=== PATIENT | male | born 1970 | race Native Hawaiian/Other Pacific Islander ===

== ENCOUNTER 2018-04-12 09:46 | Inpatient (IN) | payer BC ==
[~2018-04-12] VITALS: Ht 190.5 cm; Wt 118.0 kg
[2018-04-12 09:54] VITALS: BP 135/80; TEMP 98
[2018-04-12 10:41] LABS: PLATELET COUNT 259 K/uL (142-355)
[2018-04-12 11:02] LABS: POTASSIUM 4.8 mmol/L (3.6-5.2); SODIUM 136 mmol/L (136-145)
[2018-04-12 12:00] VITALS: BP 136/84
[2018-04-12 14:48] VITALS: BP 146/90
[2018-04-12] MEDS ORDERED: PYRI60TA2 PO (15:25)
[2018-04-12] MEDS ORDERED: GLIM4TAB PO (15:26)
[2018-04-12] MEDS ORDERED: AMLODIPINE BESYLATE PO (15:27)
[2018-04-12] MEDS ORDERED: LABETALOL100 MG PO (15:29)
[2018-04-12] MEDS ORDERED: ROSU10TA PO (15:30)
[2018-04-12] MEDS ORDERED: LANTUS100 UNIT/M SC (15:31)
[2018-04-12] MEDS ORDERED: METFORMIN HYD1000 MG PO (15:31)
[2018-04-12 16:14] LABS: PLATELET COUNT 259 K/uL (142-355)
[2018-04-12 16:28] LABS: POTASSIUM 3.9 mmol/L (3.6-5.2)
[2018-04-12 16:58] VITALS: BP 170/95; TEMP 98.2; Ht 190.5 cm; Wt 118.0 kg
[2018-04-12 20:13] VITALS: BP 143/80; TEMP 98.1
[2018-04-13] VITALS: BP 143/88; TEMP 98.7
[2018-04-13 03:35] VITALS: BP 130/79; TEMP 98.7
[2018-04-13 04:52] LABS: PLATELET COUNT 241 K/uL (142-355)
[2018-04-13 05:06] LABS: POTASSIUM 3.7 mmol/L (3.6-5.2)
--- NOTE | 2018-04-13 06:59 | NUR ---
04/13/18 0655 DISCHARGE INSTRUCTIONS GIVEN AND SIGNED.SALINE LOCK REMOVED TO RT ARM APPLIED 2X2 AND SECURED WITH TAPE PT TOLERATED WELL.PT TOOK OUT WHEELCAHIR TO PRIVATE CAR.CC
== END 2018-04-13 07:00 | disposition home or self-care (01) | DRG 440 ==
LOC: ED 09:46 → MED/SURG 14:18
PROVIDERS: ADMIT Family Medicine
DX: K85.90 Acute pancreatitis without necrosis or infection, unspecified (principal); D72.828 Other elevated white blood cell count; R11.2 Nausea with vomiting, unspecified; R10.13 Epigastric pain; I10 Essential (primary) hypertension; E11.9 Type 2 diabetes mellitus without complications; K21.9 Gastro-esophageal reflux disease without esophagitis
CPT/HCPCS: 36415; 74022; 80053; 82150; 82550; 82553; 82948; 83605; 83690; 84484; 85027; 93005; 96361; 96365; 96366; 96375; 99284; J0744; J1650; J2405; J3490; Q9963

== ENCOUNTER 2018-08-04 07:43 | Outpatient (CLI) | payer BC ==
[~2018-08-04 07:43] MED LIST: AMLODIPINE BESYLATE PO; GLIM4TAB PO; LABETALOL100 MG PO; LANTUS100 UNIT/M SC; METFORMIN HYD1000 MG PO; PYRI60TA2 PO; ROSU10TA PO
== END 2018-08-04 22:44 | disposition home or self-care (01) ==
LOC: NM 07:43
DX: E13.621 Other specified diabetes mellitus with foot ulcer (principal); L97.528 Non-pressure chronic ulcer of other part of left foot with other specified severity
CPT/HCPCS: A9561

== ENCOUNTER 2019-12-03 12:34 | Outpatient (CLI) | payer BC ==
[~2019-12-03 12:34] MED LIST changes: +BASAGLAR K100 UNIT/M SC; +NEURONTIN 100M100 MG PO; +NEXIUM 24HR20 MG PO; +TRULICITY0.75 MG/0. SC
== END 2019-12-03 23:02 | disposition home or self-care (01) ==
LOC: RAD 12:34
DX: R05 Cough (principal)

== ENCOUNTER 2019-12-06 17:03 | Inpatient (IN) | payer BC ==
[~2019-12-06] VITALS: Ht 193 cm; Wt 121.6 kg
[2019-12-06 19:03] VITALS: BP 137/81; TEMP 99.4; Ht 193 cm; Wt 121.6 kg
[2019-12-06 19:28] LABS: PLATELET COUNT 200 K/uL (142-355)
[2019-12-06 20:00] VITALS: BP 185/88; TEMP 100.1
[2019-12-07 00:14] VITALS: BP 155/67; TEMP 101.1
[2019-12-07 04:00] VITALS: BP 171/91; TEMP 101
[2019-12-07 08:00] VITALS: BP 155/84; TEMP 99.1
[2019-12-07 08:47] LABS: PLATELET COUNT 200 K/uL (142-355)
[2019-12-07 09:31] LABS: POTASSIUM 3.8 mmol/L (3.6-5.2)
[2019-12-07 12:00] VITALS: BP 170/91; TEMP 99.2
[2019-12-07 16:00] VITALS: BP 182/93; TEMP 98.7
[2019-12-07 20:00] VITALS: BP 188/99; TEMP 99.9
[2019-12-07] MEDS ORDERED: CLOPIDOGREL75 MG PO (20:10)
[2019-12-07] MEDS ORDERED: LOSA50TA PO (20:12)
[2019-12-08] VITALS (7 sets, daily range): BP systolic 143–182; BP diastolic 78–91; TEMP 98.1–99.8
[2019-12-08 04:50] LABS: PLATELET COUNT 184 K/uL (142-355)
[2019-12-09 03:42] VITALS: BP 165/93; TEMP 98.3
[2019-12-09 04:30] LABS: PLATELET COUNT 195 K/uL (142-355)
[2019-12-09 04:59] LABS: POTASSIUM 4.4 mmol/L (3.6-5.2)
[2019-12-09 08:00] VITALS: BP 180/87; TEMP 98.1
[2019-12-09 12:00] VITALS: BP 138/72; TEMP 98.1
[2019-12-09 16:00] VITALS: BP 168/84; TEMP 98.1
[2019-12-09 20:24] VITALS: BP 164/93; TEMP 98.3
[2019-12-09 23:49] VITALS: BP 187/90; TEMP 98.4
[2019-12-10 03:40] VITALS: BP 174/91; TEMP 97.7
[2019-12-10 05:26] LABS: PLATELET COUNT 219 K/uL (142-355)
[2019-12-10 05:53] LABS: POTASSIUM 4.2 mmol/L (3.6-5.2)
[2019-12-10 08:00] VITALS: BP 177/89; TEMP 97.6
[2019-12-10 12:00] VITALS: BP 185/90; TEMP 98.3
[2019-12-10 16:00] VITALS: BP 194/97; TEMP 97.8
[2019-12-10 20:00] VITALS: BP 190/99; TEMP 98.1
[2019-12-11] VITALS: BP 174/93; BP 174/97; TEMP 98.1; TEMP 99.4
[2019-12-11 04:00] VITALS: BP 151/69; TEMP 97.7
[2019-12-11 05:55] LABS: PLATELET COUNT 228 K/uL (142-355)
[2019-12-11 07:10] LABS: POTASSIUM 3.8 mmol/L (3.6-5.2)
[2019-12-11 08:00] VITALS: BP 183/90; TEMP 97.6
[2019-12-11 12:00] VITALS: BP 158/79; TEMP 97.7
[2019-12-11 16:00] VITALS: BP 156/79; TEMP 98.1
[2019-12-11 20:13] VITALS: BP 169/90; TEMP 98.2
[2019-12-12 00:14] VITALS: BP 159/77; TEMP 98.5
[2019-12-12 04:00] VITALS: BP 131/62; TEMP 98.8
[2019-12-12 08:00] VITALS: BP 186/101; TEMP 97.7
[2019-12-12 12:00] VITALS: BP 174/87; TEMP 98.1
[2019-12-12 16:00] VITALS: BP 185/97; TEMP 98.4
== END 2019-12-12 16:33 | disposition home or self-care (01) | DRG 177 ==
LOC: MED/SURG 17:03
PROVIDERS: ADMIT Family Medicine
DX: U07.1 COVID-19 (principal); J18.8 Other pneumonia, unspecified organism; E46 Unspecified protein-calorie malnutrition; I10 Essential (primary) hypertension; E86.0 Dehydration; R74.8 Abnormal levels of other serum enzymes; R09.02 Hypoxemia; E11.42 Type 2 diabetes mellitus with diabetic polyneuropathy; J44.9 Chronic obstructive pulmonary disease, unspecified; R06.00 Dyspnea, unspecified; D64.89 Other specified anemias
CPT/HCPCS: 36415; 80053; 82728; 83735; 84100; 85027; 86140; 87040; 93005; 94667; 94668; 94760; J0456; J0696; J1100; J1650; J1815; J2405; Q9963

== ENCOUNTER 2019-12-16 11:04 | Outpatient (CLI) | payer BC ==
[~2019-12-16 11:04] MED LIST changes: +CLOPIDOGREL75 MG PO; +LOSA50TA PO
== END 2019-12-16 22:01 | disposition home or self-care (01) ==
LOC: RAD 11:04
DX: J18.9 Pneumonia, unspecified organism (principal)

== ENCOUNTER 2020-06-14 12:44 | Outpatient (CLI) | payer BC ==
[~2020-06-14] VITALS: Ht 193 cm; Wt 124.3 kg
== END 2020-06-14 19:40 | disposition home or self-care (01) ==
LOC: DIABINF 12:44
PROVIDERS: ATTEND Internal Medicine Endocrinology, Diabetes & Metabolism
DX: E11.3313 Type 2 diabetes mellitus with moderate nonproliferative diabetic retinopathy with macular edema, bilateral (principal); E11.42 Type 2 diabetes mellitus with diabetic polyneuropathy; Z79.4 Long term (current) use of insulin; K21.9 Gastro-esophageal reflux disease without esophagitis; I10 Essential (primary) hypertension; E78.2 Mixed hyperlipidemia; Z68.33 Body mass index [BMI] 33.0-33.9, adult; N52.8 Other male erectile dysfunction; S81.811D Laceration without foreign body, right lower leg, subsequent encounter; R53.82 Chronic fatigue, unspecified
CPT/HCPCS: 82948; 96365; 96366; 96521; 99205; J1718; J1815

== ENCOUNTER 2020-06-15 12:08 | Outpatient (CLI) | payer BC ==
[~2020-06-15] VITALS: Ht 175.3 cm; Wt 124.3 kg
== END 2020-06-15 20:09 | disposition home or self-care (01) ==
LOC: DIABINF 12:08
PROVIDERS: ATTEND Internal Medicine Endocrinology, Diabetes & Metabolism
DX: E11.3313 Type 2 diabetes mellitus with moderate nonproliferative diabetic retinopathy with macular edema, bilateral (principal); E11.42 Type 2 diabetes mellitus with diabetic polyneuropathy; Z79.4 Long term (current) use of insulin; K21.9 Gastro-esophageal reflux disease without esophagitis; I10 Essential (primary) hypertension; E78.2 Mixed hyperlipidemia; Z68.33 Body mass index [BMI] 33.0-33.9, adult; N52.8 Other male erectile dysfunction; S81.811D Laceration without foreign body, right lower leg, subsequent encounter; R53.82 Chronic fatigue, unspecified
CPT/HCPCS: 82948; 96365; 96366; 96521; 99214; J1718; J1815

== ENCOUNTER 2020-06-21 12:36 | Outpatient (CLI) | payer BC ==
[~2020-06-21] VITALS: Ht 175.3 cm; Wt 124.3 kg
== END 2020-06-21 21:12 | disposition home or self-care (01) ==
LOC: DIABINF 12:36
PROVIDERS: ATTEND Internal Medicine Endocrinology, Diabetes & Metabolism
DX: E11.3313 Type 2 diabetes mellitus with moderate nonproliferative diabetic retinopathy with macular edema, bilateral (principal); E11.42 Type 2 diabetes mellitus with diabetic polyneuropathy; K21.9 Gastro-esophageal reflux disease without esophagitis; Z79.4 Long term (current) use of insulin; I10 Essential (primary) hypertension; E78.2 Mixed hyperlipidemia; Z68.33 Body mass index [BMI] 33.0-33.9, adult; N52.8 Other male erectile dysfunction; S81.811D Laceration without foreign body, right lower leg, subsequent encounter; R53.82 Chronic fatigue, unspecified
CPT/HCPCS: 82948; 96365; 96366; 96521; 99214; J1718; J1815

== ENCOUNTER 2020-06-21 14:25 | Outpatient (CLI) | payer BC, OTHER | END 2020-06-21 21:14 | disposition home or self-care (01) | LOC: INF 14:25 | PROVIDERS: ATTEND Internal Medicine | DX: Z23 Encounter for immunization (principal) | CPT/HCPCS: 96372 ==

== ENCOUNTER 2020-06-22 08:09 | Outpatient (CLI) | payer BC ==
[~2020-06-22] VITALS: Ht 175.3 cm; Wt 124.3 kg
== END 2020-06-22 21:25 | disposition home or self-care (01) ==
LOC: DIABINF 08:09
PROVIDERS: ATTEND Internal Medicine Endocrinology, Diabetes & Metabolism
DX: E11.3313 Type 2 diabetes mellitus with moderate nonproliferative diabetic retinopathy with macular edema, bilateral (principal); E11.42 Type 2 diabetes mellitus with diabetic polyneuropathy; K21.9 Gastro-esophageal reflux disease without esophagitis; Z79.4 Long term (current) use of insulin; I10 Essential (primary) hypertension; E78.2 Mixed hyperlipidemia; Z68.33 Body mass index [BMI] 33.0-33.9, adult; N52.8 Other male erectile dysfunction; S81.811D Laceration without foreign body, right lower leg, subsequent encounter; R53.82 Chronic fatigue, unspecified
CPT/HCPCS: 82948; 96365; 96366; 96521; 99214; J1718; J1815

== ENCOUNTER 2020-06-29 12:53 | Outpatient (CLI) | payer BC ==
[~2020-06-29] VITALS: Ht 175.3 cm; Wt 124.3 kg
== END 2020-06-29 21:46 | disposition home or self-care (01) ==
LOC: DIABINF 12:53
PROVIDERS: ATTEND Internal Medicine Endocrinology, Diabetes & Metabolism
DX: E11.3313 Type 2 diabetes mellitus with moderate nonproliferative diabetic retinopathy with macular edema, bilateral (principal); E11.42 Type 2 diabetes mellitus with diabetic polyneuropathy; K21.9 Gastro-esophageal reflux disease without esophagitis; Z79.4 Long term (current) use of insulin; I10 Essential (primary) hypertension; E78.2 Mixed hyperlipidemia; Z68.33 Body mass index [BMI] 33.0-33.9, adult; N52.8 Other male erectile dysfunction; S81.811D Laceration without foreign body, right lower leg, subsequent encounter; R53.82 Chronic fatigue, unspecified
CPT/HCPCS: 82948; 96365; 96366; 96521; 99214; J1718; J1815

== ENCOUNTER 2020-06-30 12:28 | Outpatient (CLI) | payer BC ==
[~2020-06-30] VITALS: Ht 175.3 cm; Wt 124.3 kg
== END 2020-06-30 21:39 | disposition home or self-care (01) ==
LOC: DIABINF 12:28
PROVIDERS: ATTEND Internal Medicine Endocrinology, Diabetes & Metabolism
DX: E11.3313 Type 2 diabetes mellitus with moderate nonproliferative diabetic retinopathy with macular edema, bilateral (principal); K21.9 Gastro-esophageal reflux disease without esophagitis; Z79.4 Long term (current) use of insulin; I10 Essential (primary) hypertension; E78.2 Mixed hyperlipidemia; Z68.33 Body mass index [BMI] 33.0-33.9, adult; N52.8 Other male erectile dysfunction; S81.811D Laceration without foreign body, right lower leg, subsequent encounter; R53.82 Chronic fatigue, unspecified
CPT/HCPCS: 82948; 96365; 96366; 96521; 99214; J1718; J1815

== ENCOUNTER 2020-07-06 12:39 | Outpatient (CLI) | payer BC ==
[~2020-07-06] VITALS: Ht 175.3 cm; Wt 124.3 kg
== END 2020-07-06 22:13 | disposition home or self-care (01) ==
LOC: DIABINF 12:39
PROVIDERS: ATTEND Internal Medicine Endocrinology, Diabetes & Metabolism
DX: E11.3313 Type 2 diabetes mellitus with moderate nonproliferative diabetic retinopathy with macular edema, bilateral (principal); E11.42 Type 2 diabetes mellitus with diabetic polyneuropathy; E11.65 Type 2 diabetes mellitus with hyperglycemia; K21.9 Gastro-esophageal reflux disease without esophagitis; I10 Essential (primary) hypertension; E78.2 Mixed hyperlipidemia; Z68.33 Body mass index [BMI] 33.0-33.9, adult; N52.8 Other male erectile dysfunction
CPT/HCPCS: 82948; 96365; 96366; 96521; 99214; J1718; J1815

== ENCOUNTER 2020-07-13 10:45 | Outpatient (CLI) | payer BC ==
[~2020-07-13] VITALS: Ht 175.3 cm; Wt 124.3 kg
== END 2020-07-13 19:34 | disposition home or self-care (01) ==
LOC: DIABINF 10:45
PROVIDERS: ATTEND Internal Medicine Endocrinology, Diabetes & Metabolism
DX: E11.3399 Type 2 diabetes mellitus with moderate nonproliferative diabetic retinopathy without macular edema, unspecified eye (principal); E11.42 Type 2 diabetes mellitus with diabetic polyneuropathy; Z79.4 Long term (current) use of insulin; K21.9 Gastro-esophageal reflux disease without esophagitis; I10 Essential (primary) hypertension; E78.2 Mixed hyperlipidemia; Z68.33 Body mass index [BMI] 33.0-33.9, adult; N52.8 Other male erectile dysfunction; S80.811A Abrasion, right lower leg, initial encounter; R53.82 Chronic fatigue, unspecified
CPT/HCPCS: 82948; 96365; 96366; 96521; 99214; J1718; J1815

== ENCOUNTER 2020-07-18 15:23 | Outpatient (CLI) | payer BC, OTHER | END 2020-07-18 21:36 | disposition home or self-care (01) | LOC: INF 15:23 | PROVIDERS: ATTEND Internal Medicine | DX: Z23 Encounter for immunization (principal) | CPT/HCPCS: 96372 ==

== ENCOUNTER 2020-07-21 12:10 | Outpatient (CLI) | payer BC ==
[~2020-07-21] VITALS: Ht 175.3 cm; Wt 124.3 kg
== END 2020-07-21 19:25 | disposition home or self-care (01) ==
LOC: DIABINF 12:10
PROVIDERS: ATTEND Internal Medicine Endocrinology, Diabetes & Metabolism
DX: E11.3399 Type 2 diabetes mellitus with moderate nonproliferative diabetic retinopathy without macular edema, unspecified eye (principal); E11.42 Type 2 diabetes mellitus with diabetic polyneuropathy; Z79.4 Long term (current) use of insulin; K21.9 Gastro-esophageal reflux disease without esophagitis; I10 Essential (primary) hypertension; E78.2 Mixed hyperlipidemia; Z68.33 Body mass index [BMI] 33.0-33.9, adult; N52.8 Other male erectile dysfunction; S81.801D Unspecified open wound, right lower leg, subsequent encounter; R53.82 Chronic fatigue, unspecified
CPT/HCPCS: 82948; 96365; 96366; 96521; 99214; J1718; J1815

== ENCOUNTER 2020-07-28 07:53 | Outpatient (CLI) | payer BC ==
[~2020-07-28] VITALS: Ht 170.2 cm; Wt 124.3 kg
== END 2020-07-28 19:47 | disposition home or self-care (01) ==
LOC: DIABINF 07:53
PROVIDERS: ATTEND Internal Medicine Endocrinology, Diabetes & Metabolism
DX: E11.3393 Type 2 diabetes mellitus with moderate nonproliferative diabetic retinopathy without macular edema, bilateral (principal); E11.42 Type 2 diabetes mellitus with diabetic polyneuropathy; Z79.4 Long term (current) use of insulin; K21.9 Gastro-esophageal reflux disease without esophagitis; I10 Essential (primary) hypertension; E78.2 Mixed hyperlipidemia; Z68.33 Body mass index [BMI] 33.0-33.9, adult; N52.8 Other male erectile dysfunction; S81.801A Unspecified open wound, right lower leg, initial encounter; R53.82 Chronic fatigue, unspecified
CPT/HCPCS: 82948; 96365; 96366; 96521; 99214; J1718; J1815

== ENCOUNTER 2020-08-03 12:54 | Outpatient (CLI) | payer BC ==
[~2020-08-03] VITALS: Ht 175.3 cm; Wt 124.3 kg
== END 2020-08-03 21:58 | disposition home or self-care (01) ==
LOC: DIABINF 12:54
PROVIDERS: ATTEND Internal Medicine Endocrinology, Diabetes & Metabolism
DX: E11.3399 Type 2 diabetes mellitus with moderate nonproliferative diabetic retinopathy without macular edema, unspecified eye (principal); E11.42 Type 2 diabetes mellitus with diabetic polyneuropathy; Z79.4 Long term (current) use of insulin; K21.9 Gastro-esophageal reflux disease without esophagitis; I10 Essential (primary) hypertension; E78.2 Mixed hyperlipidemia; Z68.33 Body mass index [BMI] 33.0-33.9, adult; N52.8 Other male erectile dysfunction; S81.801A Unspecified open wound, right lower leg, initial encounter; R53.82 Chronic fatigue, unspecified
CPT/HCPCS: 82948; 96365; 96366; 96521; 99214; J1718; J1815

== ENCOUNTER 2020-08-09 08:21 | Outpatient (CLI) | payer BC ==
[~2020-08-09] VITALS: Ht 175.3 cm; Wt 124.3 kg
== END 2020-08-09 21:14 | disposition home or self-care (01) ==
LOC: DIABINF 08:21
PROVIDERS: ATTEND Internal Medicine Endocrinology, Diabetes & Metabolism
DX: E11.3393 Type 2 diabetes mellitus with moderate nonproliferative diabetic retinopathy without macular edema, bilateral (principal); E11.42 Type 2 diabetes mellitus with diabetic polyneuropathy; Z79.4 Long term (current) use of insulin; K21.9 Gastro-esophageal reflux disease without esophagitis; I10 Essential (primary) hypertension; E78.2 Mixed hyperlipidemia; Z68.33 Body mass index [BMI] 33.0-33.9, adult; N52.8 Other male erectile dysfunction; S81.801A Unspecified open wound, right lower leg, initial encounter; R53.82 Chronic fatigue, unspecified
CPT/HCPCS: 82948; 96365; 96366; 96521; 99214; J1718

== ENCOUNTER 2020-08-17 13:12 | Outpatient (CLI) | payer BC ==
[~2020-08-17] VITALS: Ht 177.8 cm; Wt 90.3 kg
== END 2020-08-17 20:37 | disposition home or self-care (01) ==
LOC: DIABINF 13:12
PROVIDERS: ATTEND Nurse Practitioner
DX: E11.3399 Type 2 diabetes mellitus with moderate nonproliferative diabetic retinopathy without macular edema, unspecified eye (principal); E11.42 Type 2 diabetes mellitus with diabetic polyneuropathy; Z79.4 Long term (current) use of insulin; K21.9 Gastro-esophageal reflux disease without esophagitis; I10 Essential (primary) hypertension; E78.2 Mixed hyperlipidemia; Z68.33 Body mass index [BMI] 33.0-33.9, adult; N52.8 Other male erectile dysfunction; S81.801A Unspecified open wound, right lower leg, initial encounter; R53.82 Chronic fatigue, unspecified
CPT/HCPCS: 82948; 96365; 96366; 96521; 99214; J1718; J1815

== ENCOUNTER 2020-08-24 12:46 | Outpatient (CLI) | payer BC ==
[~2020-08-24] VITALS: Ht 175.3 cm; Wt 124.3 kg
== END 2020-08-24 20:30 | disposition home or self-care (01) ==
LOC: DIABINF 12:46
PROVIDERS: ATTEND Nurse Practitioner
DX: E11.3399 Type 2 diabetes mellitus with moderate nonproliferative diabetic retinopathy without macular edema, unspecified eye (principal); E11.42 Type 2 diabetes mellitus with diabetic polyneuropathy; Z79.4 Long term (current) use of insulin; K21.9 Gastro-esophageal reflux disease without esophagitis; I10 Essential (primary) hypertension; E78.2 Mixed hyperlipidemia; Z68.33 Body mass index [BMI] 33.0-33.9, adult; N52.8 Other male erectile dysfunction; S81.801A Unspecified open wound, right lower leg, initial encounter; R53.82 Chronic fatigue, unspecified
CPT/HCPCS: 82948; 96365; 96366; 96521; J1815; J1817

== ENCOUNTER 2020-08-31 12:44 | Outpatient (CLI) | payer BC ==
[~2020-08-31] VITALS: Ht 175.3 cm; Wt 124.3 kg
== END 2020-08-31 23:19 | disposition home or self-care (01) ==
LOC: DIABINF 12:44
PROVIDERS: ATTEND Internal Medicine Endocrinology, Diabetes & Metabolism
DX: E11.3393 Type 2 diabetes mellitus with moderate nonproliferative diabetic retinopathy without macular edema, bilateral (principal); E11.42 Type 2 diabetes mellitus with diabetic polyneuropathy; Z79.4 Long term (current) use of insulin; K21.9 Gastro-esophageal reflux disease without esophagitis; I10 Essential (primary) hypertension; E78.2 Mixed hyperlipidemia; Z68.33 Body mass index [BMI] 33.0-33.9, adult; N52.8 Other male erectile dysfunction; S81.801D Unspecified open wound, right lower leg, subsequent encounter; R53.82 Chronic fatigue, unspecified
CPT/HCPCS: 82948; 96365; 96366; 96521; J1815; J1817

== ENCOUNTER 2020-09-01 08:35 | Outpatient (CLI) | payer BC ==
[2020-09-01 09:08] LABS: PLATELET COUNT 302 K/uL (142-355)
== END 2020-09-01 22:39 | disposition home or self-care (01) ==
LOC: LABW 08:35
PROVIDERS: ATTEND Nurse Practitioner
DX: E11.65 Type 2 diabetes mellitus with hyperglycemia (principal); E78.2 Mixed hyperlipidemia; I10 Essential (primary) hypertension
CPT/HCPCS: 36415; 80053; 80061; 83036; 85027

== ENCOUNTER 2020-09-07 12:41 | Outpatient (CLI) | payer BC | END 2020-09-07 22:28 | disposition home or self-care (01) | LOC: DIABINF 12:41 | PROVIDERS: ATTEND Internal Medicine Endocrinology, Diabetes & Metabolism | DX: E11.3393 Type 2 diabetes mellitus with moderate nonproliferative diabetic retinopathy without macular edema, bilateral (principal); E11.42 Type 2 diabetes mellitus with diabetic polyneuropathy; Z79.4 Long term (current) use of insulin; K21.9 Gastro-esophageal reflux disease without esophagitis; I10 Essential (primary) hypertension; E78.2 Mixed hyperlipidemia; Z68.33 Body mass index [BMI] 33.0-33.9, adult; N52.8 Other male erectile dysfunction; S81.801D Unspecified open wound, right lower leg, subsequent encounter; R53.82 Chronic fatigue, unspecified | CPT/HCPCS: 82948; 96365; 96366; 96521; J1817 ==

== ENCOUNTER 2020-09-14 13:06 | Outpatient (CLI) | payer BC ==
[~2020-09-14] VITALS: Ht 175.3 cm; Wt 117.9 kg
== END 2020-09-14 22:00 | disposition home or self-care (01) ==
LOC: DIABINF 13:06
PROVIDERS: ATTEND Internal Medicine Endocrinology, Diabetes & Metabolism
DX: E11.3399 Type 2 diabetes mellitus with moderate nonproliferative diabetic retinopathy without macular edema, unspecified eye (principal); E11.42 Type 2 diabetes mellitus with diabetic polyneuropathy; Z79.4 Long term (current) use of insulin; K21.9 Gastro-esophageal reflux disease without esophagitis; I10 Essential (primary) hypertension; E78.2 Mixed hyperlipidemia; Z68.33 Body mass index [BMI] 33.0-33.9, adult; N52.8 Other male erectile dysfunction; S81.801D Unspecified open wound, right lower leg, subsequent encounter; R53.82 Chronic fatigue, unspecified
CPT/HCPCS: 82948; 96365; 96366; 96521; J1815; J1817

== ENCOUNTER 2020-09-21 12:33 | Outpatient (CLI) | payer BC ==
[~2020-09-21] VITALS: Ht 175.3 cm; Wt 117.9 kg
== END 2020-09-21 22:49 | disposition home or self-care (01) ==
LOC: DIABINF 12:33
PROVIDERS: ATTEND Internal Medicine Endocrinology, Diabetes & Metabolism
DX: E11.3399 Type 2 diabetes mellitus with moderate nonproliferative diabetic retinopathy without macular edema, unspecified eye (principal); E11.42 Type 2 diabetes mellitus with diabetic polyneuropathy; Z79.4 Long term (current) use of insulin; K21.9 Gastro-esophageal reflux disease without esophagitis; I10 Essential (primary) hypertension; E78.2 Mixed hyperlipidemia; Z68.33 Body mass index [BMI] 33.0-33.9, adult; N52.8 Other male erectile dysfunction; R53.82 Chronic fatigue, unspecified
CPT/HCPCS: 82948; 96365; 96366; 96521; J1817

== ENCOUNTER 2020-09-28 13:10 | Outpatient (CLI) | payer BC ==
[~2020-09-28] VITALS: Ht 175.3 cm; Wt 117.9 kg
== END 2020-09-28 22:50 | disposition home or self-care (01) ==
LOC: DIABINF 13:10
PROVIDERS: ATTEND Internal Medicine Endocrinology, Diabetes & Metabolism
DX: E11.3399 Type 2 diabetes mellitus with moderate nonproliferative diabetic retinopathy without macular edema, unspecified eye (principal); E11.42 Type 2 diabetes mellitus with diabetic polyneuropathy; Z79.4 Long term (current) use of insulin; K21.9 Gastro-esophageal reflux disease without esophagitis; I10 Essential (primary) hypertension; E78.2 Mixed hyperlipidemia; Z68.33 Body mass index [BMI] 33.0-33.9, adult; N52.8 Other male erectile dysfunction; R53.82 Chronic fatigue, unspecified; S92.811D Other fracture of right foot, subsequent encounter for fracture with routine healing
CPT/HCPCS: 82948; 96365; 96366; 96521; J1815; J1817

== ENCOUNTER 2020-10-06 12:57 | Outpatient (CLI) | payer BC ==
[~2020-10-06] VITALS: Ht 175.3 cm; Wt 117.9 kg
== END 2020-10-06 16:00 | disposition home or self-care (01) ==
LOC: DIABINF 12:57
PROVIDERS: ATTEND Internal Medicine Endocrinology, Diabetes & Metabolism
DX: E11.3399 Type 2 diabetes mellitus with moderate nonproliferative diabetic retinopathy without macular edema, unspecified eye (principal); E11.42 Type 2 diabetes mellitus with diabetic polyneuropathy; Z79.4 Long term (current) use of insulin; K21.9 Gastro-esophageal reflux disease without esophagitis; I10 Essential (primary) hypertension; E78.2 Mixed hyperlipidemia; Z68.33 Body mass index [BMI] 33.0-33.9, adult; N52.8 Other male erectile dysfunction; R53.82 Chronic fatigue, unspecified
CPT/HCPCS: 82948; 96365; 96366; 96521; J1815; J1817

== ENCOUNTER 2020-10-13 12:43 | Outpatient (CLI) | payer BC ==
[~2020-10-13] VITALS: Ht 175.3 cm; Wt 117.9 kg
== END 2020-10-13 16:00 | disposition home or self-care (01) ==
LOC: DIABINF 12:43
PROVIDERS: ATTEND Internal Medicine Endocrinology, Diabetes & Metabolism
DX: E11.65 Type 2 diabetes mellitus with hyperglycemia (principal); E11.40 Type 2 diabetes mellitus with diabetic neuropathy, unspecified; I10 Essential (primary) hypertension; E78.00 Pure hypercholesterolemia, unspecified; K21.9 Gastro-esophageal reflux disease without esophagitis; N52.9 Male erectile dysfunction, unspecified
CPT/HCPCS: 82948; 96365; 96366; 96521; J1815; J1817

== ENCOUNTER 2020-10-19 12:51 | Outpatient (CLI) | payer BC ==
[~2020-10-19] VITALS: Ht 175.3 cm; Wt 117.9 kg
== END 2020-10-19 16:00 | disposition home or self-care (01) ==
LOC: DIABINF 12:51
PROVIDERS: ATTEND Internal Medicine Endocrinology, Diabetes & Metabolism
DX: E11.69 Type 2 diabetes mellitus with other specified complication (principal); E11.3299 Type 2 diabetes mellitus with mild nonproliferative diabetic retinopathy without macular edema, unspecified eye; E11.42 Type 2 diabetes mellitus with diabetic polyneuropathy; Z79.4 Long term (current) use of insulin; K21.9 Gastro-esophageal reflux disease without esophagitis; I10 Essential (primary) hypertension; E78.2 Mixed hyperlipidemia; Z68.33 Body mass index [BMI] 33.0-33.9, adult; N52.8 Other male erectile dysfunction; R53.82 Chronic fatigue, unspecified
CPT/HCPCS: 82948; 96365; 96366; 96521; J1815; J1817

== ENCOUNTER 2020-10-27 12:50 | Outpatient (CLI) | payer BC ==
[~2020-10-27] VITALS: Ht 175.3 cm; Wt 124.3 kg
== END 2020-10-27 22:35 | disposition home or self-care (01) ==
LOC: DIABINF 12:50
PROVIDERS: ATTEND Nurse Practitioner
DX: E11.69 Type 2 diabetes mellitus with other specified complication (principal); E11.3299 Type 2 diabetes mellitus with mild nonproliferative diabetic retinopathy without macular edema, unspecified eye; E11.42 Type 2 diabetes mellitus with diabetic polyneuropathy; Z79.4 Long term (current) use of insulin; K21.9 Gastro-esophageal reflux disease without esophagitis; I10 Essential (primary) hypertension; E78.2 Mixed hyperlipidemia; Z68.33 Body mass index [BMI] 33.0-33.9, adult; N52.8 Other male erectile dysfunction; R53.82 Chronic fatigue, unspecified
CPT/HCPCS: 82948; 96365; 96366; 96521; J1815; J1817

== ENCOUNTER 2020-11-09 12:43 | Outpatient (CLI) | payer BC ==
[~2020-11-09] VITALS: Ht 175.3 cm; Wt 117.9 kg
== END 2020-11-09 21:06 | disposition home or self-care (01) ==
LOC: DIABINF 12:43
PROVIDERS: ATTEND Nurse Practitioner
DX: E11.42 Type 2 diabetes mellitus with diabetic polyneuropathy (principal); K21.9 Gastro-esophageal reflux disease without esophagitis; N52.8 Other male erectile dysfunction; E11.65 Type 2 diabetes mellitus with hyperglycemia; I10 Essential (primary) hypertension; E78.00 Pure hypercholesterolemia, unspecified
CPT/HCPCS: 82948; 96365; 96366; 96521; J1815; J1817

== ENCOUNTER 2020-11-16 12:46 | Outpatient (CLI) | payer BC ==
[~2020-11-16] VITALS: Ht 175.3 cm; Wt 117.9 kg
== END 2020-11-16 22:07 | disposition home or self-care (01) ==
LOC: DIABINF 12:46
PROVIDERS: ATTEND Nurse Practitioner
DX: E11.65 Type 2 diabetes mellitus with hyperglycemia (principal); E11.40 Type 2 diabetes mellitus with diabetic neuropathy, unspecified; I10 Essential (primary) hypertension; E78.00 Pure hypercholesterolemia, unspecified; K21.9 Gastro-esophageal reflux disease without esophagitis; N52.8 Other male erectile dysfunction
CPT/HCPCS: 82948; 96365; 96366; 96521; J1815; J1817

== ENCOUNTER 2020-11-30 13:00 | Outpatient (CLI) | payer BC ==
[~2020-11-30] VITALS: Ht 175.3 cm; Wt 117.9 kg
== END 2020-11-30 22:39 | disposition home or self-care (01) ==
LOC: DIABINF 13:00
PROVIDERS: ATTEND Nurse Practitioner
DX: E11.65 Type 2 diabetes mellitus with hyperglycemia (principal); E11.40 Type 2 diabetes mellitus with diabetic neuropathy, unspecified; I10 Essential (primary) hypertension; E78.00 Pure hypercholesterolemia, unspecified; K21.9 Gastro-esophageal reflux disease without esophagitis; N52.8 Other male erectile dysfunction
CPT/HCPCS: 82948; 96365; 96366; 96521; J1815; J1817

== ENCOUNTER 2020-12-07 12:55 | Outpatient (CLI) | payer BC ==
[~2020-12-07] VITALS: Ht 175.3 cm; Wt 117.9 kg
== END 2020-12-07 19:39 | disposition home or self-care (01) ==
LOC: DIABINF 12:55
PROVIDERS: ATTEND Nurse Practitioner Family
DX: E11.65 Type 2 diabetes mellitus with hyperglycemia (principal); E11.40 Type 2 diabetes mellitus with diabetic neuropathy, unspecified; I10 Essential (primary) hypertension; E78.00 Pure hypercholesterolemia, unspecified; K21.9 Gastro-esophageal reflux disease without esophagitis; N52.8 Other male erectile dysfunction
CPT/HCPCS: 82948; 96365; 96366; 96521; J1815; J1817

== ENCOUNTER 2020-12-14 12:55 | Outpatient (CLI) | payer BC ==
[~2020-12-14] VITALS: Ht 175.3 cm; Wt 117.9 kg
== END 2020-12-14 20:18 | disposition home or self-care (01) ==
LOC: DIABINF 12:55
PROVIDERS: ATTEND Nurse Practitioner
DX: E11.65 Type 2 diabetes mellitus with hyperglycemia (principal); E11.40 Type 2 diabetes mellitus with diabetic neuropathy, unspecified; I10 Essential (primary) hypertension; E78.00 Pure hypercholesterolemia, unspecified; K21.9 Gastro-esophageal reflux disease without esophagitis; N52.8 Other male erectile dysfunction
CPT/HCPCS: 82948; 96365; 96366; 96521; J1815; J1817

== ENCOUNTER 2020-12-22 13:09 | Outpatient (CLI) | payer BC ==
[~2020-12-22] VITALS: Ht 175.3 cm; Wt 117.9 kg
== END 2020-12-22 19:36 | disposition home or self-care (01) ==
LOC: DIABINF 13:09
PROVIDERS: ATTEND Nurse Practitioner
DX: E11.65 Type 2 diabetes mellitus with hyperglycemia (principal); E11.40 Type 2 diabetes mellitus with diabetic neuropathy, unspecified; I10 Essential (primary) hypertension; E78.00 Pure hypercholesterolemia, unspecified; K21.9 Gastro-esophageal reflux disease without esophagitis; N52.8 Other male erectile dysfunction
CPT/HCPCS: 82948; 96365; 96366; 96521; J1815; J1817

== ENCOUNTER 2021-03-25 01:16 | Emergency (ER) | payer BC ==
[~2021-03-25] VITALS: Ht 193 cm; Wt 116.1 kg
[2021-03-25 01:25] VITALS: BP 181/91; TEMP 99.8
[2021-03-25 01:56] LABS: PLATELET COUNT 250 K/uL (142-355)
[2021-03-25 02:03] LABS: POTASSIUM 3.9 mmol/L (3.6-5.2)
[2021-03-25 02:15] LABS: PARTIAL THROMBOPLASTIN TIME 23.6 SECONDS (24.5-33.6)
== END 2021-03-25 06:24 | disposition home or self-care (01) ==
LOC: ED 01:16
PROVIDERS: Emergency Medicine
DX: R07.89 Other chest pain (principal); J22 Unspecified acute lower respiratory infection
CPT/HCPCS: 36415; 80053; 83880; 84484; 85027; 85379; 85610; 85730; 93005; 99283

== ENCOUNTER 2022-06-13 08:38 | Outpatient (CLI) | payer BC | END 2022-06-13 22:25 | disposition home or self-care (01) | LOC: MRI 08:38 | PROVIDERS: ATTEND Family Medicine | DX: R10.12 Left upper quadrant pain (principal) | CPT/HCPCS: 36415; 82565; 84520; A9576 ==

== ENCOUNTER 2022-11-18 11:17 | Outpatient (CLI) | payer BC | END 2022-11-18 21:55 | disposition home or self-care (01) | LOC: RAD 11:17 | PROVIDERS: ATTEND Physician Assistant | DX: M25.511 Pain in right shoulder (principal) ==